=== PATIENT | male | born 1980 | race Caucasian/White ===

== ENCOUNTER → 2020-10-06 10:50 | Outpatient (CLI) | payer OTHER, SELFPAY ==
--- NOTE | ~2020-10-06 | XR_ITS ---
EXAMINATION: XR lumbar spine 2-3V EXAM DATE: 10/06/2020 11:10 INDICATION: Acute exacerbation of chronic low back pain . TECHNIQUE: Lumber spine frontal, lateral, lateral L5-S1 projections for interpretation. There is no prior study for comparison. FINDINGS: There is mild to moderate disc disease L4-5 and L5-S1, mild at the upper lumbar levels. Th ere is mild lumbar facet arthropathy. No endplate erosive change. Sacrum, sacroiliac joints, sacral a rcuate lines are intact. Paraspinal soft tissue is unremarkable. The vertebral bodies are aligned in the AP dimension. IMPRESSION: Mild to moderate lower lumbar, mild upper lumbar spondylosis. Reviewed, dictated and finalized at location B. [employer]
== END ==
PROVIDERS: PCP Family Medicine Adolescent Medicine; Visit Provider Family Medicine Adolescent Medicine
DX: M47.896 Other spondylosis, lumbar region (principal)
CPT/HCPCS: 72100

== ENCOUNTER 2020-12-26 11:03 | Outpatient (CLI) | payer OTHER, SELFPAY ==
--- NOTE | ~2020-12-26 | US_ITS ---
EXAMINATION: US venous doppler [facility] DATE: 12/26/2020 11:44 INDICATION: Lower limb swelling and erythema TECHNIQUE: Grayscale ultrasound images without and with compression and Doppler ultrasound images of the left lower extremity veins were obtained. COMPARISON: None. FINDINGS: The visualized portions of left common femoral vein, profunda (deep) femoral vein, femoral vein, popl iteal vein, posterior tibial veins, gastrocnemius vein and greater saphenous vein outflow are patent. IMPRESSION: 1. No deep venous thrombosis in the left lower limb. Reviewed, dictated and finalized at location B. [employer]
== END 2020-12-26 11:04 | disposition home or self-care (01) ==
PROVIDERS: PCP Family Medicine Adolescent Medicine; Visit Provider Family Medicine Adolescent Medicine
DX: R60.0 Localized edema (principal)
CPT/HCPCS: 93971